=== PATIENT | male | born 1995 | race Two or more races ===

== ENCOUNTER 2020-01-02 08:07 | Emergency (ER) | payer OTHER ==
[~2020-01-02] VITALS: Ht 160 cm; Wt 81.6 kg
[2020-01-02] MEDS ORDERED: ZITHROMAX500 MG PO (12:47)
== END 2020-01-02 13:01 | disposition home or self-care (01) ==
LOC: ER 08:07
DX: B33.8 Other specified viral diseases (principal); B96.0 Mycoplasma pneumoniae [M. pneumoniae] as the cause of diseases classified elsewhere; Z03.818 Encounter for observation for suspected exposure to other biological agents ruled out

== ENCOUNTER 2020-09-21 09:44 | Outpatient (CLI) | payer OTHER ==
[~2020-09-21 09:44] MED LIST: ZITHROMAX500 MG PO
== END 2020-09-21 15:00 | disposition home or self-care (01) ==
LOC: LAB 09:44
PROVIDERS: ATTEND Emergency Medicine Pediatric Emergency Medicine
DX: Z03.818 Encounter for observation for suspected exposure to other biological agents ruled out (principal)